=== PATIENT | male | born 1950 | race Caucasian/White ===

== ENCOUNTER → 2021-05-19 | Outpatient (CLI) | payer MEDICAID ==
[~2021-05-19] MED LIST: ASPIRIN EC81 MG PO; COREG 12.5MG12.5 MG PO; COREG 3.125M3.125 MG PO; ENALAPRIL MALEAT5 MG PO; LIPITOR TAB 2020 MG PO; PLAVIX 75 MG TA75 MG PO; SINGULAIR10 MG PO; SYMBICORT 16010.2 GM INH
[2021-05-19 10:10] LABS: HEMOGLOBIN 17.1 gm/dl (14.0-17.5); RED BLOOD COUNT 5.41 M/UL (4.20-5.50); WHITE BLOOD COUNT 8.2 K/UL (4.5-11.0)
[2021-05-19 10:37] LABS: BUN/CREATININE RATIO 23 (0-10)
== END ==
LOC: LAB 09:17
PROVIDERS: Internal Medicine Cardiovascular Disease
DX: I11.0 Hypertensive heart disease with heart failure (principal); I25.10 Atherosclerotic heart disease of native coronary artery without angina pectoris; I50.22 Chronic systolic (congestive) heart failure
CPT/HCPCS: 36415; 71045; 80053; 80061; 83735; 83880; 84439; 84443; 85025

== ENCOUNTER → 2021-06-23 | Outpatient (CLI) | payer MEDICAID | LOC: ECHO 05-30 10:00 → HEART 5 10:55 | DX: I25.10 Atherosclerotic heart disease of native coronary artery without angina pectoris (principal); I11.0 Hypertensive heart disease with heart failure; I50.22 Chronic systolic (congestive) heart failure | CPT/HCPCS: 93306 ==

== ENCOUNTER → 2021-06-30 | Outpatient (CLI) | payer MEDICAID | LOC: ECHO 09:26 | DX: I11.0 Hypertensive heart disease with heart failure (principal); I50.22 Chronic systolic (congestive) heart failure; I25.10 Atherosclerotic heart disease of native coronary artery without angina pectoris | CPT/HCPCS: 93308 ==

== ENCOUNTER → 2021-07-07 | Outpatient (CLI) | payer MEDICAID | LOC: HEART 5 07-03 07:30 | DX: I25.10 Atherosclerotic heart disease of native coronary artery without angina pectoris (principal); I50.22 Chronic systolic (congestive) heart failure; I25.5 Ischemic cardiomyopathy; R94.39 Abnormal result of other cardiovascular function study | CPT/HCPCS: 78452; A9502; J2785 ==

== ENCOUNTER 2021-11-18 09:58 | Inpatient (IN) | payer MEDICARE ==
[~2021-11-18] VITALS: Ht 175.3 cm; Wt 74.8 kg
[2021-11-18 12:19] LABS: RED BLOOD COUNT 5.29 M/UL (4.20-5.50); WHITE BLOOD COUNT 8.5 K/UL (4.5-11.0)
[2021-11-18 12:50] LABS: BUN/CREATININE RATIO 21 (0-10)
[2021-11-18] MEDS ORDERED: FUROSEMIDE20 MG PO (19:18)
[2021-11-18] MEDS ORDERED: LOPRESSOR 25 MG25 MG PO (19:21)
[2021-11-18] MEDS ORDERED: PROVENTIL HFA6.7 GM INH (19:23)
[2021-11-18] MEDS ORDERED: ISOSORBIDE MONO30 MG PO (19:23)
[2021-11-18] MEDS ORDERED: ENTRESTO 24 MG1 EACH PO (19:26)
[2021-11-18] MEDS ORDERED: MOTRIN IB200 MG PO (19:27)
[2021-11-18] MEDS ORDERED: IPRAT-ALBUT 0.5-3 ML INH (19:28)
[2021-11-19 01:39] LABS: HEMOGLOBIN 15.4 gm/dl (14.0-17.5); RED BLOOD COUNT 4.77 M/UL (4.20-5.50); WHITE BLOOD COUNT 9.7 K/UL (4.5-11.0)
[2021-11-19 01:47] LABS: BUN/CREATININE RATIO 24 (0-10)
[2021-11-19 02:01] LABS: ADENOVIRUS F 40/41 Not Detected (Negative); ASTROVIRUS Not Detected (Negative); CAMPYLOBACTER Not Detected (Negative); CLOSTRIDIUM DIFFICILE TOX A/B Not Detected (Negative); CRYPTOSPORIDIUM Not Detected (Negative); E.COLI 0157 Not Detected (Negative); ENTAMOEBA HISTOLYTICA Not Detected (Negative); ENTEROAGGREGATIVE E.COLI (EAEC Not Detected (Negative); ENTEROPATHOGENIC E.COLI (EPEC) Not Detected (Negative); ENTEROTOXIGENIC E.COLI (ETEC) Not Detected (Negative); GIARDIA LAMBLIA Not Detected (Negative); NOROVIRUS GI/GII Not Detected (Negative); PLESIOMONAS SHIGELLOIDES Not Detected (Negative); ROTOVIRUS A Not Detected (Negative); SALMONELLA Not Detected (Negative); SAPOVIRUS Not Detected (Negative); SHIG/ENTEROINVAS.ECOLI (EIEC) Not Detected (Negative); SHIGA-LIK TOX.PRO.E.COLI (STEC Not Detected (Negative); VIBRIO Not Detected (Negative); VIBRIO CHOLERAE Not Detected (Negative); YERSINIA ENTEROCOLITICA Not Detected (Negative)
--- NOTE | 2021-11-19 03:24 | NUR ---
11/19/2021 @ APPROX. 02:00 - At this time patient is refusing to use the provided urinal and bedside commode. RN educates patient about the reasoning for staff encouraging use of urinal and bedside commode. Patient states that "if he gets to the point where he can't go to the actual bathroom on his own, then that is it for him, he will leave this room and go home." Patient continues to state that he does not want to be put on the ventilator. RN questioned patient, if his heart stops or he stops breathing, will he want staff to restart his heart, or breathing, and patient stated he does not want that. Dayshift RN will be notified, to discuss with attending hospitalist in the morning.
[2021-11-19 05:51] LABS: ACINETOBACTER BAUMANNII Not Detected (Negative); CANDIDA ALBICANS Not Detected (Negative); CANDIDA KRUSEI Not Detected (Negative); CANDIDA TROPICALIS Not Detected (Negative); ENTEROCOCCUS Not Detected (Negative); ESCHERICHIA COLI Not Detected (Negative); HAEMOPHILUS INFLUENZAE Not Detected (Negative); KLEBSIELLA OXYTOCA Not Detected (Negative); KLEBSIELLA PNEUMONIAE Not Detected (Negative); KPC-CARBAPENEM-RESISTANCE GENE Not Detected (Negative); PROTEUS Not Detected (Negative); PSEUDOMONAS AERUGINOSA Not Detected (Negative); SERRATIA MARCESANS Not Detected (Negative); STAPHYLOCOCCUS AUREUS Not Detected (Negative); STREP AGALACTIAE (GROUP B) Not Detected (Negative); STREP PYOGENES (GROUP A) Not Detected (Negative); STREPTOCOCCUS Not Detected (Negative); mecA (METHICILLIN RESIST GENE Not Detected (Negative); vanA/B (VANCOMYCIN RESIST GENE Not Detected (Negative)
[2021-11-19 07:08] LABS: STAPHYLOCOCCUS DETECTED (Negative)
--- NOTE | 2021-11-19 08:26 | NUR ---
PATIENTS CALLED TO SEE IF SHE COULD VISIT. HOUSE MANGER DID NOT APPROVE THE VISIT DUE TO THE PATIENT BEING COVID POSITIVE. PATIENTS STATES THAT SHE IS GOING TO COME TO THE HOSPITAL AND SPEAK TO MANAGEMENT. PATIENT STATES THAT NOTHING WILL STOP HER FROM COMING IN. PATIENT OFFERED A ZOOM MEETING OPTION AT THIS TIME AND SHE STATES THAT SHE IS STILL COMING UP. HOUSE MANGER AND EXTERIOR DOOR INSTALLER ALECE AWARE OF SITUATION.
--- NOTE | 2021-11-20 00:58 | NUR ---
11/19/2021 @ APPROX. 21:15- Patient states again this shift that he refuses to be put on the ventilator and that he would not want us to restart his heart if it was to stop. RN clarifies this with patient, pt states that he will be leaving tomorrow 11/20/[address] or [address]". MD Fournier is notified of patient's decision, order is placed for DNR, DNR bracelet placed on patient.
--- NOTE | 2021-11-20 02:54 | NUR ---
Patient reported to [facility] that he is going to leave at 0400. This RN talked with patient to figure out what the issue is, that is causing him to leave. Patient stated that he just didn't want to be here and wanted to go home. RN explained the risks of leaving, including the risk of dying due to low oxygen. Patient stated that "if that's how it is, then that's how it is, I'm going to at home anyways." Patient states to RN that his significant other will be here at 0700 to pick him up. supervisor [employer] Patrica notified, she states that when it is closer to time to him wanting to leave, staff will contact MD to further discuss the risks of leaving AMA.
--- NOTE | 2021-11-20 06:29 | NUR ---
0625: Patient's significant other called this RN, stating she in on her way to pick the patient up, demanding the IV be discontinued, and that he is ready to leave this facility. Patient's significant other states that she will be here approximately 0715. 0627: MD Fournier is notified, states to hold the patient until MD can come talk to the patient to discuss the risks of leaving AMA.
--- NOTE | 2021-11-20 07:33 | NUR ---
PATIENT CAME OUT OF ROOM AT THIS TIME TO LEAVE AMA. PATIENT DISCUSSED LEAVING WITH AND WAS GIVEN AN EXPLANATION OF RISKS AND BENEFITS. PATIENT VERBALZIED UNDERSTANDING. PATIENT IS ALERT AND ORIENTED AT TIME OF DISCUSSION. PATIENT INSTRUCTED TO RETURN FOR WORSENING OF SYMPTOMS. PATIENT IV REMOVED WITH TIP INTACT. PATIENT SIGNED AMA PAPERS AND VERBALIZED AGAIN THAT HE UNDERSTANDS THE RISKS AND BENEFITS OF LEAVING AND THAT LEAVING AMA COULD RESULT IN . PATIENT PROVIDED A WHEELCHAIR RIDE TO THE PARKING LOT BY MYSELF.
== END 2021-11-20 07:58 | disposition left against medical advice (07) | DRG 177 ==
LOC: ER1 09:58 → CDU 12:55 → MED SURG 4 12:55
PROVIDERS: Nurse Practitioner; Physician Assistant; ADMIT Internal Medicine
PROC: XW033E5 Introduction of Remdesivir Anti-infective into Peripheral Vein, Percutaneous Approach, New Technology Group 5 (ICD-10-PCS; 2021-11-18)
PROC: 3E0333Z Introduction of Anti-inflammatory into Peripheral Vein, Percutaneous Approach (ICD-10-PCS; 2021-11-18)
PROC: B24BZZZ Ultrasonography of Heart with Aorta (ICD-10-PCS; principal; 2021-11-19)
PROC: 8E0ZXY6 Isolation (ICD-10-PCS; 2021-11-19)
DX: U07.1 COVID-19 (principal); J96.01 Acute respiratory failure with hypoxia; J12.82 Pneumonia due to coronavirus disease 2019; I21.A1 Myocardial infarction type 2; I50.22 Chronic systolic (congestive) heart failure; J44.0 Chronic obstructive pulmonary disease with (acute) lower respiratory infection; J44.1 Chronic obstructive pulmonary disease with (acute) exacerbation; E86.0 Dehydration; I25.5 Ischemic cardiomyopathy; I11.0 Hypertensive heart disease with heart failure; R91.8 Other nonspecific abnormal finding of lung field; F17.210 Nicotine dependence, cigarettes, uncomplicated; I08.1 Rheumatic disorders of both mitral and tricuspid valves; I25.10 Atherosclerotic heart disease of native coronary artery without angina pectoris; Z95.5 Presence of coronary angioplasty implant and graft; Z79.01 Long term (current) use of anticoagulants; Z79.82 Long term (current) use of aspirin; Z82.49 Family history of ischemic heart disease and other diseases of the circulatory system; Z91.14 Patient's other noncompliance with medication regimen; I25.2 Old myocardial infarction; Z95.1 Presence of aortocoronary bypass graft
CPT/HCPCS: ECHO; 36600; 71045; 80053; 82150; 82550; 82553; 82728; 82803; 83605; 83615; 83690; 83874; 83880; 84484; 85025; 85379; 85610; 85652; 85730; 86140; 87040; 87077; 87150; 87186; 87507; 93005; 93306; 94640; 94664; 94760; 96374; 99285; J0456; J0696; J1100; J1650; J3370; J7030; J7070; Q9967; U0002

== ENCOUNTER 2021-12-05 12:22 | Inpatient (IN) | payer MEDICARE, OTHER ==
[~2021-12-05] VITALS: Ht 175.3 cm; Wt 67.6 kg
[~2021-12-05 12:22] MED LIST changes: -ATORVASTATIN CA20 MG PO; -METOPROLOL SUCC25 MG PO; -WARFARIN SODIUM4 MG PO
[2021-12-05 14:39] LABS: HEMOGLOBIN 15.3 gm/dl (14.0-17.5); RED BLOOD COUNT 4.99 M/UL (4.20-5.50); WHITE BLOOD COUNT 14.4 K/UL (4.5-11.0)
[2021-12-05 15:04] LABS: BUN/CREATININE RATIO 20 (0-10)
[2021-12-06 02:20] LABS: HEMOGLOBIN 13.7 gm/dl (14.0-17.5); WHITE BLOOD COUNT 12.9 K/UL (4.5-11.0)
[2021-12-06 02:22] LABS: RED BLOOD COUNT 4.39 M/UL (4.20-5.50)
[2021-12-06 03:23] LABS: BUN/CREATININE RATIO 20 (0-10)
--- NOTE | 2021-12-06 10:57 | NUR ---
1055- NOTIFIED DR MADDEN OF BLOOD PRESSURE 90/55. PATIENT NOT SYMPTOMATIC AT THIS TIME AND STATED HIS BLOOD PRESSURE NORMALLY RUNS IN THE 90. NEW ORDERS NOTED. PHARMACY NOTIFIED.
[2021-12-07 05:59] LABS: HEMOGLOBIN 13.6 gm/dl (14.0-17.5); RED BLOOD COUNT 4.4 M/UL (4.20-5.50); WHITE BLOOD COUNT 10.4 K/UL (4.5-11.0)
[2021-12-07] MEDS ORDERED: WARFARIN SODIUM4 MG PO (10:04)
[2021-12-07] MEDS ORDERED: ATORVASTATIN CA20 MG PO (10:04)
[2021-12-07] MEDS ORDERED: METOPROLOL SUCC25 MG PO (10:07)
--- NOTE | 2021-12-07 11:23 | NUR ---
0905- NOTIFIED DR MADDEN OF PATIENT WANTING TO LEAVE AM. STATED SHE WOULD BE DOWN TO SEE PATIENT.
== END 2021-12-07 11:06 | disposition left against medical advice (07) | DRG 300 ==
LOC: ER1 12:22 → MED SURG 4 18:19 → CDU 18:19 → MED SURG 4 23:12
PROVIDERS: Internal Medicine; Physician Assistant; Preventive Medicine Occupational Medicine; ADMIT Internal Medicine
PROC: B24BZZ4 Ultrasonography of Heart with Aorta, Transesophageal (ICD-10-PCS; principal; 2021-12-07)
DX: I82.621 Acute embolism and thrombosis of deep veins of right upper extremity (principal); I50.22 Chronic systolic (congestive) heart failure; I25.5 Ischemic cardiomyopathy; E78.5 Hyperlipidemia, unspecified; Z20.822 Contact with and (suspected) exposure to COVID-19; J44.9 Chronic obstructive pulmonary disease, unspecified; F17.210 Nicotine dependence, cigarettes, uncomplicated; I10 Essential (primary) hypertension; I25.10 Atherosclerotic heart disease of native coronary artery without angina pectoris; Z91.14 Patient's other noncompliance with medication regimen; Z86.711 Personal history of pulmonary embolism; Z79.01 Long term (current) use of anticoagulants; I82.611 Acute embolism and thrombosis of superficial veins of right upper extremity; Z95.1 Presence of aortocoronary bypass graft; Z95.5 Presence of coronary angioplasty implant and graft
CPT/HCPCS: 36415; 80048; 80053; 82550; 82553; 83874; 84484; 85025; 85027; 85610; 85730; 86140; 93005; 93308; 93970; 96374; 99285; J1644; Q9967; U0002

== ENCOUNTER → 2021-12-05 | Outpatient (CLI) | payer OTHER ==
[~2021-12-05] MED LIST changes: +ATORVASTATIN CA20 MG PO; +ENTRESTO 24 MG1 EACH PO; +FUROSEMIDE20 MG PO; +IPRAT-ALBUT 0.5-3 ML INH; +ISOSORBIDE MONO30 MG PO; +LOPRESSOR 25 MG25 MG PO; +METOPROLOL SUCC25 MG PO; +MOTRIN IB200 MG PO; +PROVENTIL HFA6.7 GM INH; +WARFARIN SODIUM4 MG PO
== END ==
LOC: EXRD 10:40
DX: I73.9 Peripheral vascular disease, unspecified (principal); I82.611 Acute embolism and thrombosis of superficial veins of right upper extremity
CPT/HCPCS: 93922; 93925

== ENCOUNTER 2021-12-10 10:57 | Emergency (ER) | payer MEDICARE ==
[~2021-12-10 10:57] MED LIST changes: +ATORVASTATIN CA20 MG PO; +METOPROLOL SUCC25 MG PO; +WARFARIN SODIUM4 MG PO
[2021-12-10 11:54] LABS: HEMOGLOBIN 14.7 gm/dl (14.0-17.5); RED BLOOD COUNT 4.63 M/UL (4.20-5.50); WHITE BLOOD COUNT 12.1 K/UL (4.5-11.0)
[2021-12-10 12:36] LABS: BUN/CREATININE RATIO 19 (0-10)
== END 2021-12-10 16:27 | disposition left against medical advice (07) ==
LOC: ER1 10:57
PROVIDERS: Family Medicine
DX: I63.9 Cerebral infarction, unspecified (principal); I25.5 Ischemic cardiomyopathy; J44.9 Chronic obstructive pulmonary disease, unspecified; I21.9 Acute myocardial infarction, unspecified; R29.703 NIHSS score 3; E78.5 Hyperlipidemia, unspecified; Z20.822 Contact with and (suspected) exposure to COVID-19; I10 Essential (primary) hypertension; Z79.01 Long term (current) use of anticoagulants; F17.200 Nicotine dependence, unspecified, uncomplicated; R27.0 Ataxia, unspecified
CPT/HCPCS: 36600; 70450; 70496; 70498; 71045; 80053; 80307; 81001; 82009; 82550; 82553; 82803; 83605; 83690; 83735; 83874; 83880; 84484; 85025; 85610; 93005; 99285; G0480; Q9967; U0002

== ENCOUNTER → 2021-12-26 | Outpatient (CLI) | payer MEDICAID | LOC: CT 11:00 | DX: I70.221 Atherosclerosis of native arteries of extremities with rest pain, right leg (principal); I11.0 Hypertensive heart disease with heart failure; I50.9 Heart failure, unspecified; I25.10 Atherosclerotic heart disease of native coronary artery without angina pectoris; J44.9 Chronic obstructive pulmonary disease, unspecified; E78.00 Pure hypercholesterolemia, unspecified; F17.218 Nicotine dependence, cigarettes, with other nicotine-induced disorders; Z79.02 Long term (current) use of antithrombotics/antiplatelets; Z91.81 History of falling; Z91.14 Patient's other noncompliance with medication regimen | CPT/HCPCS: 75635; Q9967 ==

== ENCOUNTER → 2022-04-30 | Outpatient (CLI) | payer MEDICARE | LOC: HEART 5 13:45 | DX: R06.02 Shortness of breath (principal) | CPT/HCPCS: 71046; 94060; 94729 ==